=== PATIENT | female | born 1955 | race Caucasian/White ===

== ENCOUNTER → 2016-11-03 | Outpatient (CLI) | payer OTHER ==
--- NOTE | 2016-11-03 08:56 | KCIC ---
DEXA study Indication: Osteoporosis screening Reason For Study Reason: POST MENOPAUSAL, ABNORMAL BONE DENSITY SCREENING / Spl. Instructions: / History: Findings: score:-0.3 According to the world health organization (WHO): Normal: T score at or above -1 Osteopenia: T score between -1 and -2.5 Osteoporosis: T score at or below -2.5 Impression: - Bone mineral density is within normal limits. Electronically signed by: Lorenzo Hoff (November 03, 2016 08:55:11)
--- NOTE | 2016-11-03 09:11 | KCIC ---
Coronary calcium score CT chest without contrast. Indication: Cardiovascular screening Reason For Study CT CALCIUM SCORING TECHNIQUE With retrospective electrocardiogram gaiting, axial reconstructed noncontrast images of the chest at the level of the heart were performed. Images were post processed on an independent workstation and calcium score was calculated. FINDINGS Total coronary calcium score is 0. This places the patient in the lowest percentile rank. This means that nearly all men of this age have a higher calcium score. There is no calcified plaque burden and very low cardiovascular risk. This is based on the calcium score of 0 of the left main coronary artery, 0 of the left anterior descending artery, score of 0 involving the left circumflex artery and score of 0 of the right coronary artery. Non coronary findings show no acute abnormality. IMPRESSION - Total coronary calcium score is 0. This places the patient in the lowest percentile rank. This means that nearly all women of this age have a higher calcium score. There is no calcified plaque burden and very low cardiovascular risk. Electronically signed by: Lorenzo Hoff (November 03, 2016 09:10:41)
--- NOTE | 2016-11-03 11:29 | KCIC ---
PROCEDURE Bilateral lower extremity arterial duplex ultrasound. HISTORY Abnormal RENATO. TECHNIQUE Grayscale, color flow, and spectral waveform analysis were performed. COMPARISON None at this institution. FINDINGS There is minimal plaquing bilaterally greatest in the runoff. No turbulent flow or high-grade stenosis is identified. No elevated velocity is identified. Waveforms are predominantly triphasic proximally and biphasic distally. Right common femoral artery peak systolic velocity is 171 centimeters/second and the left 120 centimeters/second. Right profundus peak systolic velocity is 84 cm/sec and the left 65 cm/sec. Right superficial femoral artery peak systolic velocities ranged from 75-109 cm/sec and the left 92-114 centimeters/second. Right popliteal artery peak systolic velocity is 60 centimeters/second and the left 58 cm/sec. IMPRESSION Minimal plaquing in the lower extremities bilaterally, without evidence of a hemodynamically significant stenosis. Electronically signed by: Saud Urbina MD (November 03, 2016 11:28:12)
== END | disposition home or self-care (01) ==
LOC: KCIC DEXA 07:56
PROVIDERS: ATTEND Family Medicine
DX: Z13.820 Encounter for screening for osteoporosis (principal); Z13.6 Encounter for screening for cardiovascular disorders; Z78.0 Asymptomatic menopausal state; R94.39 Abnormal result of other cardiovascular function study; Z82.49 Family history of ischemic heart disease and other diseases of the circulatory system
CPT/HCPCS: 75571; 77080; 93925

== ENCOUNTER → 2019-05-24 | Outpatient (CLI) | payer OTHER ==
--- NOTE | 2019-05-24 09:40 | KCIC ---
EXAM: Dual energy x-ray absorptiometry (DEXA). HISTORY: Postmenopausal female presents for osteoporosis screening. COMPARISON: 11/03/2016. TECHNIQUE: Dual energy x-ray absorptiometry of the lumbar spine and left hip was performed. Calculation of bone mineral density based on standard deviations above or below the expected young adult normal value (T-score) was completed. FINDINGS: The average bone mineral density in the 1st through 4th lumbar vertebrae is 1.020 g/cmxcm, corresponding with a T-score of -0.2. There has been a 3.2% increase in density of the lumbar spine compared to the prior study. The average total bone mineral density in the left hip is 0.968 g/cmxcm, corresponding with a T-score of 0.2. There has been a 7.0% increase in density of the left hip compared to the prior study. IMPRESSION: Normal bone mineral density. Note: Definitions established by the World Health Organization: 1. Normal: T-score is -1.0 or above. 2. Osteopenia: T-score is between -1.0 and -2.5 . 3. Osteoporosis: T-score is -2.5 or below. Electronically signed by: Nat Ocampo MD (05/24/2019 9:37 AM) [id number]
== END | disposition home or self-care (01) ==
LOC: KCIC DEXA 08:09
PROVIDERS: ATTEND Nurse Practitioner Family
DX: Z13.820 Encounter for screening for osteoporosis (principal); Z78.0 Asymptomatic menopausal state
CPT/HCPCS: 77080

== ENCOUNTER → 2020-05-23 | Outpatient (CLI) | payer OTHER ==
--- NOTE | 2020-05-23 17:13 | KCIC ---
MRI of the lumbar spine without contrast 05/23/2020 CLINICAL HISTORY: Low back pain which radiates down the left leg for 2 months. TECHNIQUE: Unenhanced T1-weighted and T2-weighted sagittal and axial and inversion recovery sagittal images of the lumbar spine were obtained. FINDINGS: Very mild lateral curvature of the cervical spine is seen convex to the left. Degenerative signal changes are seen involving all of the disks of the lumbar spine. Loss of height of the L1-2, L4-5 and L5-S1 discs is noted. Degenerative signal changes are seen within the marrow surrounding all of the disks of the lumbar spine. The conus medullaris is normal morphology, position, and signal characteristics. At the L1-2 and L2-3 disc spaces there are mild generalized disc bulges. Degenerative changes are seen involving the facet joints bilaterally. There is mild ligamentum flavum hypertrophy bilaterally. These findings do not result in significant central spinal canal or neural foraminal stenosis. At the L3-4 disc space is a mild generalized disc bulge. Degenerative changes are seen involving the facet joints bilaterally. There is mild ligamentum flavum hypertrophy bilaterally. There is prominence of he posterior epidural fat. These findings when combined do not result in significant central spinal canal or neural foraminal stenosis. At the L4-5 disc space there is a mild generalized disc bulge. Degenerative changes are seen involving the facet joints bilaterally. There is mild to moderate ligamentum flavum hypertrophy bilaterally. These findings when combined do not result in significant central spinal canal or neural foraminal stenosis. At the L5-S1 disc space there is a mild generalized disc bulge. Degenerative changes are seen involving the facet joints bilaterally. There is mild ligamentum flavum hypertrophy bilaterally. Small facet joint effusions are seen bilaterally. A heterogeneous rounded structure is seen projecting anteriorly and medially from the left facet joint. This measures 1.4 x 1.3 x 1.1 cm in craniocaudal, AP and transverse dimensions. This demonstrates predominanty decreased signal intensity on the T2-weighted images and decreased signal intensity on the T1-weighted images. This felt to most likely represent a complex or calcified synovial cyst. These findings when combined result in severe left-sided central spinal canal stenosis with impingement upon the left S1 nerve root within the left aspect of the central spinal canal. No neural foraminal stenosis is seen. IMPRESSION: The changes of degenerative disc disease are seen throughout the lumbar spine. These findings result in severe left-sided central spinal canal stenosis at L5-S1. No neural foraminal stenosis is seen. At the L5-S1 disc space a 1.4 cm heterogeneous rounded structure is seen projecting anteriorly and medially from the left facet joint. This is felt to most likely represent a complex or calcified synovial cyst. It appears to impinge upon the left S1 nerve root within the left aspect of the central spinal canal. Electronically signed by: Ethan Rubio MD (05/23/2020 5:09 PM) [id number]
== END ==
LOC: KCIC MRI 14:23
PROVIDERS: ATTEND Family Medicine
DX: M47.26 Other spondylosis with radiculopathy, lumbar region (principal); M48.07 Spinal stenosis, lumbosacral region
CPT/HCPCS: 72148

== ENCOUNTER → 2020-06-10 | Outpatient (CLI) | payer OTHER ==
[~2020-06-10] MED LIST: CHOL500050 PO; DOCU-109 PO; GABA600T7 PO; HYDR-3164 PO; KRIL500C PO; LUTE1CAP3 PO; LYSI500T24 PO; METH-38 PO; MULT-460 PO; VITA1TAB19 PO
[2020-06-10 15:31] LABS: BASO % 1 % (0-3); EOS # 0.2 x10^3/uL (0.0-0.7); EOS % 4 % (0-3); HEMATOCRIT 40.2 % (36.0-47.0); HEMOGLOBIN 13.8 g/dL (12.0-15.5); LYMPH # 1.6 x10^3/uL (1.0-4.8); LYMPH % 30 % (24-48); MEAN CORPUSCULAR HEMOGLOBIN 31 pg (25-35); MEAN CORPUSCULAR HGB CONC 34 g/dL (31-37); MEAN CORPUSCULAR VOLUME 90 fL (79-100); MONO # 0.6 x10^3/uL (0.0-1.1); MONO % 11 % (0-9); NEUT # 2.9 x10^3/uL (1.8-7.7); NEUT % 55 % (31-73); PLATELET COUNT 166 x10^3/uL (140-400); RED BLOOD COUNT 4.48 x10^6/uL (3.50-5.40); WHITE BLOOD COUNT 5.3 x10^3/uL (4.0-11.0)
[2020-06-10 15:56] LABS: ALBUMIN 3.9 g/dL (3.4-5.0); ALBUMIN/GLOBULIN RATIO 1.1 (1.0-1.7); CALCIUM 9.2 mg/dL (8.5-10.1); CREATININE 0.9 mg/dL (0.6-1.0); GFR 63.4; POTASSIUM 3.7 mmol/L (3.5-5.1); TOTAL BILIRUBIN 0.4 mg/dL (0.2-1.0); TOTAL PROTEIN 7.5 g/dL (6.4-8.2)
== END ==
LOC: SURGPAT 13:25
PROVIDERS: ATTEND Neurological Surgery
DX: Z01.812 Encounter for preprocedural laboratory examination (principal); Z20.828 Contact with and (suspected) exposure to other viral communicable diseases; M54.17 Radiculopathy, lumbosacral region; M71.30 Other bursal cyst, unspecified site; M48.07 Spinal stenosis, lumbosacral region
CPT/HCPCS: 80053; 85025; 87641; U0003

== ENCOUNTER 2020-06-17 06:44 | Day surgery (SDC) | payer OTHER ==
[~2020-06-17] VITALS: Ht 160 cm; Wt 72.6 kg
--- NOTE | 2020-06-17 06:40 | PREOP HP ---
DATE OF SERVICE: 06/17/2020 PREOPERATIVE HISTORY AND PHYSICAL DATE OF SURGERY: 06/17/2020. HISTORY OF PRESENT ILLNESS: The patient is a pleasant 64-year-old who beginning about 3 months ago developed pain in her left leg, which radiated into her left posterior thigh, lateral leg and lateral aspect of her left foot. That pain has become very severe and she rates it as a 7/10 with pain medication. Lying down makes the pain worse. She has trouble controlling the pain. She has been taking gabapentin recently for this pain. She states that she is unable to stretch because it is too painful. She has noted loss of feeling in the lateral leg and foot. There is no problem on the right side. She has never had a similar problem. PAST MEDICAL HISTORY: Cold sores. PAST SURGICAL HISTORY: Exploratory gynecological surgery. FAMILY HISTORY: Heart disease and hypertension. SOCIAL HISTORY: She is retired. . Quit smoking more than 10 years ago. Drinks alcohol 1-2 times per month. ALLERGIES: No known drug allergies. CURRENT MEDICATIONS: Ibuprofen, gabapentin, Super B complex, omega 3, lutein, vitamin D3, lysine, and multivitamin. REVIEW OF SYSTEMS: A 12-point review of systems was obtained and is noncontributory except for that mentioned above. PHYSICAL EXAMINATION: NEUROSURGERY EXAMINATION: GENERAL APPEARANCE: Alert, pleasant, in no acute distress. HEAD: Normocephalic and atraumatic. SKIN: Warm and dry. MUSCULOSKELETAL: Lumbar paraspinal muscle bulk is normal, restricted range of motion of the lumbar spine, very mild tenderness of the lower lumbar spine with palpation, normal range of motion of the lower extremities bilaterally. EXTREMITIES: No clubbing, cyanosis or edema. NEUROLOGIC: Alert and oriented x 3, normal recent and remote memory, strength 5/5 in bilateral lower extremities, sensory was intact to light touch in bilateral lower extremities except for decrease in the lateral left foot, reflexes are present and symmetric in lower extremities bilaterally, positive straight leg raising on the left, negative straight leg raising on the right, normal gait. IMAGING: I reviewed a lumbar MRI scan from 05/23/2020. On that study, the principal abnormalities are at L5-S1 with a large rounded structure projecting anteriorly and medially from the left facet joint measuring 1.4 cm in greatest diameter. This appears to represent a complex or calcified synovial cyst associated with severe left-sided central spinal canal stenosis and impingement or compression of the left S1 nerve root. ASSESSMENT/ PLAN: She has a large synovial cyst with marked nerve root compression and stenosis, left L5-S1. At this point, she is in severe pain and I feel that she should undergo lumbar microsurgery to remove the synovial cyst. I explained to her that there was no amount of physical therapy or epidural steroid injections, which could help this problem. I outlined the surgery with laminectomy on the left side. I spoke about removing the cyst. I spoke about potential complications such as a spinal fluid leak. I spoke about the risks and expected postoperative course, they understand. They would like to go ahead. We will make the arrangements. RAVIN AYALA MD DR: ERNESTINA/lindsay JOB#: [id number] / [id number] URIEL
[~2020-06-17 06:44] MED LIST changes: +BACITRACIN 50,000 UNIT in IV NORMAL SALINE 1000ML BAG 1,000 ML IRR ONE; -DOCU-109 PO; -HYDR-3164 PO; +HYDROmorphone 2 MG/ML VIAL IVP PRN; +IV RINGERS,LACTATED 1000ML 1,000 ML IV SCH; -METH-38 PO; +MORPHINE SULFATE 2 MG/ML VIAL. IVP PRN; +PROCHLORPERAZINE 10 MG/2 ML VIAL. IVP PRN; +fentaNYL PF VIAL 100 MCG/2 ML VIAL IVP PRN
[2020-06-17] MEDS ORDERED: ONDANSETRON PF 4 MG/2 ML VIAL. IV PRN (07:00)
[2020-06-17] MEDS ORDERED: IV RINGERS,LACTATED 1000ML 1,000 ML IV SCH (07:00)
[2020-06-17] MEDS ORDERED: HYDROmorphone 2 MG/ML VIAL IV PRN (07:00)
[2020-06-17] MEDS ORDERED: PROCHLORPERAZINE 10 MG/2 ML VIAL. IV PRN (07:00)
[2020-06-17] MEDS ORDERED: fentaNYL PF VIAL 100 MCG/2 ML VIAL IV PRN ×2 (07:00)
[2020-06-17] MEDS ORDERED: MORPHINE SULFATE 2 MG/ML VIAL. IV PRN (07:00)
[2020-06-17] MEDS ORDERED: LIDOCAINE 1% PF 2 ML VIAL. ID PRN (07:00)
[2020-06-17] MEDS ORDERED: LIDOCAINE 1%/EPI 1:100,000 20 ML VIAL. ONE (07:06)
[2020-06-17] MEDS ORDERED: KETOROLAC 60 MG/2 ML VIAL. ONE (07:06)
[2020-06-17] MEDS ORDERED: GELATIN SPONGE SIZE 100. ONE (07:06)
[2020-06-17] MEDS ORDERED: THROMBIN TOPICAL 20,000 UNIT SPRAY.SYRN KIT TP ONE (07:06)
[2020-06-17] MEDS ORDERED: ROCURONIUM 50 MG/5 ML VIAL. ONE (07:59)
[2020-06-17] MEDS ORDERED: LIDOCAINE 2% PF 5 ML VIAL. ONE (07:59)
[2020-06-17] MEDS ORDERED: PROPOFOL 10 MG/ML (20ML) VIAL. IV ONE (07:59)
[2020-06-17] MEDS ORDERED: DEXAMETHASONE SOD PHOS 20 MG/5 ML VIAL. ONE (07:59)
[2020-06-17] MEDS ORDERED: 0.9 % SODIUM CHLORIDE 20 ML VIAL. IJ ONE (07:59)
[2020-06-17] MEDS ORDERED: fentaNYL PF VIAL 100 MCG/2 ML VIAL ONE ×2 (07:59→09:50)
[2020-06-17] MEDS ORDERED: ONDANSETRON PF 4 MG/2 ML VIAL. ONE (07:59)
[2020-06-17] MEDS ORDERED: SUCCINYLCHOLINE 200 MG/10 ML VIAL. ONE (07:59)
[2020-06-17] MEDS ORDERED: REMIFENTANIL 1 MG VIAL. IV ONE (08:00)
[2020-06-17] MEDS ORDERED: PHENYLEPHRINE 10 MG/ML VIAL. ONE (08:11)
[2020-06-17] MEDS ORDERED: PROPOFOL 50 ML IV ONE ×2 (08:12→10:19)
[2020-06-17] MEDS ORDERED: SEVOFLURANE > 120 MINUTES. IH ONE (11:33)
[2020-06-17] MEDS ORDERED: HYDR-3164 PO (12:09)
[2020-06-17] MEDS ORDERED: METH-38 PO (12:09)
[2020-06-17] MEDS ORDERED: DOCU-109 PO (12:09)
--- NOTE | 2020-06-17 12:10 | DISCH ---
DISCHARGE INSTRUCTIONS Condition on Discharge Condition on Discharge: Stable Activity After Discharge Activity Instructions for Disc: Activity as tolerated, Avoid exertion Other activity instructions: no driving for a week Bathing Instructions: Shower-keep dressing dry, No Tub Bath until see Lifting Instructions after Dis: No heavy lifting, No pulling or pushing, Do not lift >10 pounds Diet after Discharge Additional Diet Restrictions: resume home diet Wound Incision Care Wound/Incision Care: Ice to area for comfort Other wound/incision instructi: may remove dressing in 48 hours if dry then may shower, no soaking Contacting the after DC Call your doctor for: Concerns you may have Follow-Up Follow up with: Dr. Ayala's nurse in 2 weeks [phone] RAVIN AYALA MD Jun 17, 2020 12:10
[2020-06-17] MEDS ORDERED: HYDROcodone/APAP 5/325MG 1 TAB TABLET PO ONE (12:45)
[2020-06-17 12:46] VITALS: BP 127/71
--- NOTE | 2020-06-17 13:33 | OP ---
DATE OF SURGERY: 06/17/2020 PREOPERATIVE DIAGNOSIS: Synovial cyst with severe left-sided canal stenosis at L5-S1 with severe left lumbar radiculopathy. POSTOPERATIVE DIAGNOSIS: Synovial cyst with severe left-sided canal stenosis at L5-S1 with severe left lumbar radiculopathy. OPERATION PERFORMED: Lumbar left direct laminectomy with excision of synovial cyst and decompression of dura and nerve root. SURGEON: Jn Ayala M.D. HAND HEEL SEAT FITTER: Gita Mitchell APRN, assisted with the surgery, the exposure, the decompression, removal of the cyst as well as the closure. OPERATIVE INDICATIONS: The patient is a pleasant 64-year-old who developed severe intractable back and left leg pain, was found to have a very large synovial cyst, which was inverted into the dura and markedly compressing the nerve root on the left side at L5-S1. I recommended lumbar microsurgical decompression. I discussed with her the surgery and the risks involved including dural laceration. I explained the technique of the operation and expected postoperative course. She understood and she wished to go ahead. DESCRIPTION OF PROCEDURE: Following general endotracheal anesthesia, the patient was positioned prone on the Abhishek table. Lumbar region prepped and draped in standard fashion. ROSMERY hose and AV impulse boots were applied for DVT prophylaxis. The microscope was draped. Fluoroscopy was draped and brought into the field. Monitoring was established. Ancef 2 grams were given less than 1 hour prior to initiation of the surgery. Using fluoroscopic guidance, incision was made directly over the L5-S1 interspace, dissected down through subcutaneous tissue, reflected the paraspinal muscles, placed a [place] micro disc retractor, brought the high speed air drill and the microscope, I burred down a generous hemilaminotomy and then I drilled across to over the midline and I worked out laterally performing a generous foraminotomy. I was working around a large synovial cyst covered with a ligamentum flavum and I began to work around the ligament, the dura was densely scarred. I gently the scar from the dura and worked circumferentially around the synovial cyst peeling it down from superior to inferior. I was methodical and again through the microscope, I was safely able to free up the scar and peel the cyst away removing it with micro instruments including microscissors and micro pituitaries. As I worked, the region became better and better decompressed. I was then able to follow the nerve root and completely excise the cyst. I did go back and drilled away the source and fully decompressed the entire region. There were a number of epidural veins laterally placed, which I coagulated. There was no significant hemorrhage throughout the operation. I removed the retractor, irrigated copiously and then obtained hemostasis in the muscle and then I closed the wound in layers with absorbable suture. The skin was closed with 4-0 subcuticular stitch. The operation went very well. JN AYALA MD DR: ERNESTINA/lindsay JOB#: [id number] / [id number] URIEL
--- NOTE | 2020-06-19 15:19 | PATHOLOGY ---
[facility] Accession Number: [id number] . 01 Material submitted: . back - LUMBAR SYNOVIAL CYST . 01 Clinical history: . LUMBAR SYNOVIAL CYST,STENOSIS RADICULOPATHY,LUMBAR MICRODECOMPRESSION WITH EXCISION OF SYNOCIAL CYST L5-S1 . 02 Diagnosis: Segments of fibrocartilaginous, fibroadipose, and synovial tissue and bone, lumbar microdecompression with excision of synovial cyst L5-S1: - Degenerative changes of fibrocartilaginous tissue. - Synovial cyst. . (JP:mm; 06/19/2020) [facility] 06/19/2020 1418 Local . 02 Comment: There is no evidence of an acute inflammatory process or malignancy. . (JPM:mm; 06/19/2020) . 02 Electronically signed: . Segun Schofield MD, Pathologist NPI- [id number] . 01 Gross description: . The specimen is received in formalin, labeled "Korin Katty, lumbar synovial cyst". Received are multiple segments of pale singh to pink-singh gritty tissue admixed with possible bone measuring 3.0 x 3.0 x 1.3 cm in aggregate dimensions. The specimen is submitted entirely in cassettes A1 and A2, following decalcification. (CAA; 06/18/2020) QAC/QAC 06/18/2020 1540 Local . 02 Pathologist provided ICD-10: M71.38 . 02 CPT . 507479, [id number] Specimen Comment: A courtesy copy of this report has been sent to [phone], [phone] Specimen Comment: [id number] Specimen Comment: Report sent to / DR OLIVAS Performed at: [address] [place] [address] [address], [place], [place] [id number] MD Ken Mackey MD Phone: [phone] Performed at: [address] [id number] MD Segun Schofield MD Phone: [phone]
== END 2020-06-17 14:00 | disposition home or self-care (01) ==
LOC: SURG 06:44
PROVIDERS: ATTEND Neurological Surgery
DX: M54.17 Radiculopathy, lumbosacral region (principal); M48.07 Spinal stenosis, lumbosacral region; M71.30 Other bursal cyst, unspecified site; I10 Essential (primary) hypertension; M71.38 Other bursal cyst, other site; Z87.891 Personal history of nicotine dependence; Z79.899 Other long term (current) drug therapy; Z98.890 Other specified postprocedural states; Z82.49 Family history of ischemic heart disease and other diseases of the circulatory system
CPT/HCPCS: 63030; 88304; 88311; 97161; 97530; J0330; J0690; J1100; J1885; J2370; J2405; J2704; J3010; J3490; J7030; J7120; 76000